=== PATIENT | female | born 1955 | race Hispanic/Latino ===

== ENCOUNTER 2020-03-08 16:11 | Inpatient (IN) | payer MEDICAID ==
[2020-03-08 17:26] LABS: BASOPHILS % (AUTO) 0.4 % (0.0-5.0); HEMATOCRIT 53.7 % (36-48); LYMPHOCYTES % (AUTO) 14.6 % (21.0-51.0); MEAN CORPUSCULAR HGB CONC 31.1 g/dL (32.0-36.0); MEAN CORPUSCULAR VOLUME 96.4 fL (79-99); MONOCYTES % (AUTO) 10.7 % (3.0-13.0); NEUTROPHILS % (AUTO) 72.7 % (40.0-77.0); PLATELET COUNT (AUTO) 92 K/uL (130-400); RED BLOOD CELL COUNT(AUTO) 5.57 MIL/uL (4.00-5.50); RED CELL DISTRIBUTION WIDTH 14.6 % (11.0-15.5); WHITE BLOOD COUNT (AUTO) 14.1 K/uL (4.8-10.8)
[2020-03-08 17:40] LABS: INR 1.05 (0.85-1.15); PARTIAL THROMBOPLASTIN TIME 25.3 SEC (26.3-35.5); PROTHROMBIN TIME 11.3 SEC (9.6-11.6)
[2020-03-08 17:56] LABS: ALANINE AMINOTRANSFERASE 48 U/L (12-78); ALBUMIN 3.3 g/dL (3.5-5.0); ASPARTATE AMINOTRANSFERASE 61 U/L (10-37); BILIRUBIN,TOTAL 0.5 mg/dL (0.2-1.0); CARBON DIOXIDE 37 mmol/L (21-32); CREATINE KINASE, TOTAL 90 U/L (21-232); CREATININE 1.6 mg/dL (0.5-1.5); GLOMERULAR FILTR. RATE CALC 35 mL/min (>60); GLUCOSE,RANDOM 149 mg/dL (70-105); MYOGLOBIN 394 ng/mL (10-92); POTASSIUM 3.3 mmol/L (3.5-5.1); TOTAL PROTEIN, SERUM 7.1 g/dL (6.0-8.3); TROPONIN I < 0.04 ng/mL (0.00-0.06); UREA NITROGEN, BLOOD 53 mg/dL (7-18)
[2020-03-08 17:57] LABS: SODIUM SERUM 169 mmol/L (136-145)
[2020-03-08 17:58] LABS: CHLORIDE 125 mmol/L (101-111)
[2020-03-08] MEDS ORDERED: CEFTRIAXONE SODIUM 1 GM ONE (19:21)
[2020-03-08 21:03] LABS: APPEARANCE,URINE CLOUDY (CLEAR); BILIRUBIN,URINE SMALL (NEGATIVE); COLOR,URINE YELLOW (YELLOW); GLUCOSE, URINE (UA) NEGATIVE (NEGATIVE); KETONES,URINE NEGATIVE (NEGATIVE); LEUKOCYTE ESTERASE ,URINE MODERATE (NEGATIVE); NITRATE,URINE NEGATIVE (NEGATIVE); OCCULT BLOOD,URINE SMALL (NEGATIVE); PROTEIN,URINE 30 mg/dL (NEGATIVE); UROBILINOGEN,URINE 0.2 mg/dL (0.2-1.0)
[2020-03-08 21:09] LABS: BACTERIA,URINE Few /HPF (None Seen); SQUAMOUS EPITHELIAL CELL,UR Many /HPF (0-2)
[2020-03-08] MEDS ORDERED: ZOSYN 3.375GM+NS 50ML 50 ML IV ONE (21:39)
[2020-03-09] MEDS ORDERED: ZOSYN 3.375GM+NS 50ML 50 ML IV ONE (07:04)
[2020-03-09] MEDS: DEXTROSE 5%-WATER 1,000 ML IV SCH ×2 (08:00→21:20)
[2020-03-09 09:44] LABS: CREATININE 1.2 mg/dL (0.5-1.5); POTASSIUM 3.1 mmol/L (3.5-5.1)
[2020-03-09] MEDS ORDERED: MAGNESIUM 2GM PREMIX 50ML 50 ML IV PRN (10:00)
[2020-03-09] MEDS ORDERED: POTASSIUM CHLORIDE 20 MEQ ERTAB PO PRN (10:00)
[2020-03-09] MEDS ORDERED: LIDOCAINE HCL-MPF 1% 2ML VIAL IV PRN (10:00)
[2020-03-09] MEDS ORDERED: DEXTROSE 50%-WATER 50 ML DISP.SYRIN IV PRN (10:00)
[2020-03-09] MEDS ORDERED: GLUCAGON 1MG KIT 1 MG ML IM PRN (10:00)
[2020-03-09] MEDS: INSULIN HUMULIN R 100 UNIT/ML 3ML SQ SCH ×3 (11:30→21:00)
[2020-03-09 12:00] VITALS: BP 73/55
[2020-03-09] MEDS: ZOSYN 3.375GM+NS 50ML 50 ML IV SCH ×2 (13:27→23:45)
[2020-03-09 13:45] LABS: POTASSIUM 3.1 mmol/L (3.5-5.1)
[2020-03-09 16:00] VITALS: BP 136/61
[2020-03-09 19:03] LABS: POTASSIUM 2.8 mmol/L (3.5-5.1)
[2020-03-09 19:25] VITALS: BP 123/50
[2020-03-09] MEDS: POTASSIUM CHLORIDE 20MEQ/100ML 100 ML IV PRN ×2 (20:29→22:25)
[2020-03-09 22:03] LABS: CREATININE 0.9 mg/dL (0.5-1.5); POTASSIUM 3.7 mmol/L (3.5-5.1)
[2020-03-09 23:27] VITALS: BP 104/48
[2020-03-10 03:40] VITALS: BP 120/42
[2020-03-10 06:39] LABS: CREATININE 0.8 mg/dL (0.5-1.5); POTASSIUM 3.4 mmol/L (3.5-5.1)
[2020-03-10 07:30] VITALS: BP 94/46
[2020-03-10] MEDS: INSULIN HUMULIN R 100 UNIT/ML 3ML SQ SCH ×4 (07:30→19:52)
[2020-03-10 08:36] LABS: HEMATOCRIT 40.3 % (36-48); MEAN CORPUSCULAR HEMOGLOBIN 29.8 pg (27.0-33.0); MEAN CORPUSCULAR HGB CONC 31.3 g/dL (32.0-36.0); MEAN CORPUSCULAR VOLUME 95.3 fL (79-99); PLATELET COUNT (AUTO) 52 K/uL (130-400); RED BLOOD CELL COUNT(AUTO) 4.23 MIL/uL (4.00-5.50); RED CELL DISTRIBUTION WIDTH 14.2 % (11.0-15.5); WHITE BLOOD COUNT (AUTO) 6.8 K/uL (4.8-10.8)
[2020-03-10 09:48] LABS: PLATELET MORPHOLOGY COMMENT DECREASED
[2020-03-10 10:37] LABS: CREATININE 0.8 mg/dL (0.5-1.5); POTASSIUM 3.4 mmol/L (3.5-5.1)
[2020-03-10] MEDS: DEXTROSE 5%-WATER 1,000 ML IV SCH (11:15)
[2020-03-10 11:17] VITALS: BP 108/54
[2020-03-10] MEDS: ZOSYN 3.375GM+NS 50ML 50 ML IV SCH (12:39)
[2020-03-10 15:39] VITALS: BP 105/75
[2020-03-10 19:24] LABS: CREATININE 0.7 mg/dL (0.5-1.5); POTASSIUM 3.5 mmol/L (3.5-5.1)
[2020-03-10 20:23] VITALS: BP 80/57
[2020-03-10 23:41] VITALS: BP 86/46
[2020-03-11] MEDS: ZOSYN 3.375GM+NS 50ML 50 ML IV SCH ×2 (00:15→13:31)
[2020-03-11 03:45] VITALS: BP 105/56
[2020-03-11 05:34] LABS: HEMATOCRIT 42.3 % (36-48); MEAN CORPUSCULAR HEMOGLOBIN 29.1 pg (27.0-33.0); PLATELET COUNT (AUTO) 59 K/uL (130-400); RED CELL DISTRIBUTION WIDTH 13.6 % (11.0-15.5); WHITE BLOOD COUNT (AUTO) 6.6 K/uL (4.8-10.8)
[2020-03-11 05:38] LABS: ALBUMIN 2.5 g/dL (3.5-5.0); BILIRUBIN,DIRECT 0.2 mg/dL (0.0-0.3); BILIRUBIN,TOTAL 0.6 mg/dL (0.2-1.0); CREATININE 0.7 mg/dL (0.5-1.5); POTASSIUM 3.5 mmol/L (3.5-5.1); TOTAL PROTEIN, SERUM 5.5 g/dL (6.0-8.3)
[2020-03-11] MEDS: INSULIN HUMULIN R 100 UNIT/ML 3ML SQ SCH ×4 (06:16→20:32)
[2020-03-11 09:00] VITALS: BP 109/79
[2020-03-11] MEDS: DEXTROSE 5%-WATER 1,000 ML IV SCH ×2 (12:50)
[2020-03-11 16:00] VITALS: BP 98/51
[2020-03-11 17:16] LABS: ABG BASE EXCESS 5.2 mmol/L (-2.0-3.0); ABG HCO3 28.6 mmol/L (21.0-28.0); ABG OXYGEN SATURATION 97.2 % (95.0-99.0); ABG PCO2 38 mmHg (32-45)
[2020-03-11 20:32] VITALS: BP 97/44
[2020-03-12] MEDS: ZOSYN 3.375GM+NS 50ML 50 ML IV SCH ×2 (01:01→12:13)
[2020-03-12] MEDS: DEXTROSE 5%-WATER 1,000 ML IV SCH ×2 (02:40→15:07)
[2020-03-12 03:59] VITALS: BP 119/55
[2020-03-12] MEDS: INSULIN HUMULIN R 100 UNIT/ML 3ML SQ SCH ×2 (05:33→11:12)
[2020-03-12 05:43] LABS: ALBUMIN 2.4 g/dL (3.5-5.0); BILIRUBIN,TOTAL 0.6 mg/dL (0.2-1.0); CREATININE 0.7 mg/dL (0.5-1.5); POTASSIUM 3.1 mmol/L (3.5-5.1); TOTAL PROTEIN, SERUM 5.3 g/dL (6.0-8.3)
[2020-03-12 05:45] LABS: BASOPHILS % (AUTO) 0.5 % (0.0-5.0); EOSINOPHILS % (AUTO) 1.8 % (0.0-8.0); HEMATOCRIT 40.2 % (36-48); LYMPHOCYTES % (AUTO) 19.7 % (21.0-51.0); MEAN CORPUSCULAR HEMOGLOBIN 29.7 pg (27.0-33.0); MEAN CORPUSCULAR HGB CONC 32.1 g/dL (32.0-36.0); MEAN CORPUSCULAR VOLUME 92.4 fL (79-99); MONOCYTES % (AUTO) 13.6 % (3.0-13.0); NEUTROPHILS % (AUTO) 63.1 % (40.0-77.0); PLATELET COUNT (AUTO) 53 K/uL (130-400); RED BLOOD CELL COUNT(AUTO) 4.35 MIL/uL (4.00-5.50); RED CELL DISTRIBUTION WIDTH 13.2 % (11.0-15.5)
[2020-03-12] MEDS: POTASSIUM CHLORIDE 10% ELIXIR 20 MEQ/15 ML UDCUP PO PRN ×3 (06:15→10:57)
[2020-03-12 07:47] VITALS: BP 134/55
[2020-03-12] MEDS ORDERED: POLY119P3 PO (10:41)
[2020-03-12] MEDS ORDERED: SIMV-46 PO (10:44)
[2020-03-12] MEDS ORDERED: CALC500O PO (10:45)
[2020-03-12 11:55] VITALS: BP 130/60
[2020-03-12 15:39] VITALS: BP 128/62
[2020-03-12 16:01] LABS: ABG BASE EXCESS 2.7 mmol/L (-2.0-3.0); ABG HCO3 26.3 mmol/L (21.0-28.0); ABG OXYGEN SATURATION 97.9 % (95.0-99.0); ABG PCO2 38 mmHg (32-45)
[2020-03-12 20:51] VITALS: BP 130/72
[2020-03-12] MEDS ORDERED: SIMVASTATIN 20 MG TABLET PO SCH (21:00)
[2020-03-13] MEDS: ZOSYN 3.375GM+NS 50ML 50 ML IV SCH ×2 (00:39→14:01)
[2020-03-13 01:04] VITALS: BP 140/63
[2020-03-13 04:26] VITALS: BP 139/98
[2020-03-13] MEDS: DEXTROSE 5%-WATER 1,000 ML IV SCH (05:20)
[2020-03-13 05:40] LABS: HEMATOCRIT 39.2 % (36-48); MEAN CORPUSCULAR HEMOGLOBIN 29.6 pg (27.0-33.0); MEAN CORPUSCULAR HGB CONC 32.4 g/dL (32.0-36.0); MEAN CORPUSCULAR VOLUME 91.4 fL (79-99); PLATELET COUNT (AUTO) 74 K/uL (130-400); RED BLOOD CELL COUNT(AUTO) 4.29 MIL/uL (4.00-5.50); RED CELL DISTRIBUTION WIDTH 13.8 % (11.0-15.5)
[2020-03-13 05:53] LABS: ALBUMIN 2.4 g/dL (3.5-5.0); BILIRUBIN,TOTAL 0.3 mg/dL (0.2-1.0); CREATININE 0.6 mg/dL (0.5-1.5); MAGNESIUM 2.1 mg/dL (1.80-2.40); PHOSPHORUS 2.6 mg/dL (2.5-4.9); POTASSIUM 4.3 mmol/L (3.5-5.1); TOTAL PROTEIN, SERUM 5.7 g/dL (6.0-8.3)
[2020-03-13 08:00] VITALS: BP 124/51
[2020-03-13] MEDS ORDERED: POLYETHYLENE GLYCOL 3350 17 GM POWD.PACK PO SCH (09:00)
[2020-03-13 11:46] VITALS: BP 120/58
== END 2020-03-13 15:55 | disposition home or self-care (01) | DRG 426 ==
LOC: EDH 16:11 → OBSVTOIN 16:12 → EDHIP 16:12 → UNDOADMOB 22:05 → 4AH 03-09 08:00
PROVIDERS: ADMIT Internal Medicine Critical Care Medicine; ATTEND Internal Medicine Critical Care Medicine
DX: E87.0 Hyperosmolality and hypernatremia (principal); U07.1 COVID-19; G93.41 Metabolic encephalopathy; E86.0 Dehydration; F72 Severe intellectual disabilities; E87.6 Hypokalemia; N17.9 Acute kidney failure, unspecified; R32 Unspecified urinary incontinence; R47.02 Dysphasia; N39.0 Urinary tract infection, site not specified; M81.0 Age-related osteoporosis without current pathological fracture; B19.10 Unspecified viral hepatitis B without hepatic coma; R80.9 Proteinuria, unspecified; E87.1 Hypo-osmolality and hyponatremia; Q85.01 Neurofibromatosis, type 1
CPT/HCPCS: 36415; 36600; 71045; 80048; 80053; 80076; 81001; 82550; 82728; 82803; 82948; 83605; 83735; 83874; 84100; 84145; 84484; 85025; 85027; 85610; 85730; 87040; 87088; 87804; 92610; 93005; G0378; J0696; J2543; J3480; J7070; U0003